=== PATIENT | female | born 1950 | race Caucasian/White ===

== ENCOUNTER → 2023-08-23 07:52 | Outpatient (REF) | payer MEDICARE, OTHER, SELFPAY ==
[2023-08-23 08:58] LABS: HDL Cholesterol 89 mg/dl; LDL Cholesterol, Calculated 142 mg/dl; Total Cholesterol 247 mg/dl (50-199); Triglyceride 80 mg/dl (10-149); Very Low Density Lipoprotein 16 mg/dl (0-30)
== END ==
LOC: REG 07:52
PROVIDERS: ATTENDING PHYSICIAN Family Medicine
DX: E78.2 Mixed hyperlipidemia (principal)
CPT/HCPCS: 36415; 80061

== ENCOUNTER → 2023-08-31 11:50 | Outpatient (REF) | payer MEDICARE, OTHER, SELFPAY ==
[2023-08-31 20:03] LABS: Urine Albumin Trace (Neg - Trace); Urine Bilirubin Negative (Negative); Urine Character Clear (Clear); Urine Color Yellow; Urine Glucose Negative (Negative); Urine Ketone Trace (Negative); Urine Leukocyte 1+ (Negative); Urine Nitrite Positive (Negative); Urine Occult Blood 2+ (Negative); Urine Specific Gravity 1.025 (<1.030); Urine Urobilinogen Negative (Neg - 1+)
[2023-08-31 20:07] LABS: Urine Calcium Oxalate Crystals Present
[2023-08-31 20:09] LABS: Urine Bacteria Few (Negative); Urine Red Blood Cell 0-2 /HPF (0-2)
[2023-08-31 20:10] LABS: Urine Squamous Cell 0-2 /LPF (Few)
== END ==
LOC: CLAB 11:50
PROVIDERS: ATTENDING PHYSICIAN Obstetrics & Gynecology
DX: N39.0 Urinary tract infection, site not specified (principal)
CPT/HCPCS: 81003; 81015; 87086

== ENCOUNTER 2023-10-30 16:49 | Emergency (ER) | payer MEDICARE, OTHER, SELFPAY ==
[2023-10-30 16:53] VITALS: BP 207/114
--- NOTE | 2023-10-30 17:20 | ED.GENMED ---
History of Present Illness
General
Chief Complaint: Headache
Source: patient
Exam Limitations: none
Time Seen by Provider: 10/30/23 17:08
History of Present Illness
History of Present Illness:
73-year-old female 2 days of left-sided neck pain radiating to the left side of her head towards her yarsanism and around her ear. No trauma. Decreased lateral rotation bilaterally and decreased flexion. Patient does do yoga fairly regularly. No
fever no visual issues no other neurologic issues. Pain seems very spasm-like and comes quickly and the spasm-like waves. Last took Tylenol this morning
Past History
Past History
ED Past Medical History: None
ED Past Surgical History: Orthopedic (Bunionectomy) and Other (Melanoma surgery Mohs surgery.)
Review of Systems
Review of Systems
All Other Systems: Not applicable
Constitutional: Denies fever or chills
Respiratory: Reports no symptoms
Cardiac: Reports no symptoms
Neurological: Denies dizzy, weakness or numbness
Phy Exam
Physical Exam
Physical Exam:
GENERAL: Alert and oriented. Patient initially standing in the room walking without difficulty. As we talked she appeared to have these frequent spasms of pain that were causing pain around her left ear and yarsanism area. Clearly had self splinting
with decreased lateral rotation bilaterally and decreased flexion of the neck.
EYE: Orbits normal. Extraocular muscles intact
NECK: Decreased range of motion with decreased lateral and flexion. Left paracervical tenderness. No carotid bruit.
ENT: Pharynx without erythema
CARDIAC: Regular rate and rhythm without any obvious murmurs.
LUNGS: Clear breath sounds,normal
ABDOMEN: Soft, without focal tenderness or distention
NEUROLOGICAL: Alert and oriented , grossly non-focal. Speech normal gait normal. Cranial nerves II through XII intact. Nonfocal.
SKIN: Warm and dry, no rash or lesion, no discoloration, skin intact.
MUSCULOSKELETAL: No edema,no deformity.Good color
PSYCH: Normal and appropriate interaction.
Course
Orders/Labs/Results
Orders:
Orders
10/30/23 17:01
EKG [Electrocardiogram (*1)] Urgent
Reason for Study: Chest Pain
EKG- Treatment ONCE
10/30/23 17:18
CT Head & Neck Angio W/wo IV Urgent
Comment:
Reason For Exam: Left-sided neck pain radiating to the left yarsanism.
IV Insert/Care/Rem.- Treatment PRN
0.9% Sodium Chloride 500 ml [Nss] 500 ml IV BOLUS
diazePAM [Valium Injection] 2 mg IV NOW STA
10/30/23 17:20
Acetaminophen 1000MG/100Ml [Ofirmev] 1,000 mg in 100 ml IV ONCE
Acetaminophen IV Indication:: ED Narcotic Naive Pt-ONCE
10/30/23 17:47
Basic Metabolic Panel Urgent
Complete Blood Count/With Diff Urgent
Erythrocyte Sed Rate Urgent
10/30/23 18:06
Ketorolac [Toradol] 15 mg IV NOW STA
Abnormal Lab Results
10/30/23
17:47
MCH 31.7 H pg
(27.0-31.0)
ESR 23 H mm/hour
(0-20)
10/30/23 17:47
10/30/23 17:47
Vital Signs
Initial and Last Documented VS:
Initial Vital Signs
Temp Pulse Resp BP Pulse Ox
98.1 F 73 16 207/114 99
10/30/23 16:53 10/30/23 16:53 10/30/23 16:53 10/30/23 16:53 10/30/23 16:53
Last Documented Vital Signs
Temp Pulse Resp BP Pulse Ox
98.1 F 58 13 159/86 97
10/30/23 16:53 10/30/23 19:45 10/30/23 19:45 10/30/23 19:00 10/30/23 19:45
MDM/Problems Addressed
Differential Diagnosis Includes:
Clinically this is much more suspicious of a neuralgia/radiculopathy issue. However with nontraumatic sudden pain in the neck radiating to the temporal area dissection or bleed has to be considered. Workup in progress.
*Radiology
Radiology exam reviewed: radiology read reviewed (No acute findings on CT. Mild nonacute sinusitis. The space narrowing.)
*Pulse Oximetry
Patient hypoxic: no
*EKG
Interpreted by ED Provider?: Yes
Interpretation: abnormal
Comparison EKG: no comparison EKG present
Heart Rate: 67
Rate: normal
Rhythm: sinus
[place]well: left axis deviation
Interval: normal interval
QRS Pattern: right bundle branch block (inc)
*Critical Care Note
Total Time (30-74mins, 75-104mins- exclusive of procedures): Not Applicable
Update Note
Update Note:
Patient doing much better with low-dose Valium and Toradol. No serious etiology found. Stable for discharge.
ED Attending Note
-
Portions of this chart may have been created with voice recognition software.� Occasional wrong word or��sound alike� substitutions may have occurred due to the inherent limitations of voice recognition software.
Discharge Plan
Departure
Patient Disposition: Home (Routine Discharge)
Date of Disposition: 10/30/23
Time of Disposition: 19:28
Patient with high blood pressure during this ER visit?: Yes
Discharge Problem:
Headache/left facial pain, Radiculopathy/neuralgia
Instructions: Headache, Adult (DC), BLOOD PRESSURE
Prescriptions:
New
diazepam [Valium] 2 mg tablet
2 mg PO TID PRN (Reason: muscle spasm) Qty: 14 0RF
Referrals:
Kam Burgess MD [Family Provider] - Follow up in 2-3 days
Activity Restrictions/Additional Instructions:
Advil as directed
You can also add Tylenol
Valium as a muscle relaxer
Close follow-up with your primary physician
Return with any concerning symptoms including worsening headache worsening neck pain neurologic symptoms fever visual issues or any other concerning symptoms
Interventions
Interventions:
*Risk Screen - Suicide Last Done: 10/30/23 17:08
*General Assessment Last Done: 10/30/23 16:53
*Neglect/Abuse Screening Last Done: 10/30/23 17:08
*ED COVID-19 Vaccine History Last Done: 10/30/23 16:53
ED- Neurological Assessment Last Done: 10/30/23 17:50
Discharge Date and Time
Print Language: MONTSERRATIAN
[2023-10-30 17:37] VITALS: BP 182/95
[2023-10-30] MEDS: OFIRMEV 100 IV (17:42)
[2023-10-30] MEDS: VALIUM INJECTION 2 MG IV (17:42)
[2023-10-30] MEDS: NSS 500 IV (17:42)
[2023-10-30 18:00] VITALS: BP 163/89
[2023-10-30 18:03] LABS: % Basophils 0.4 % (0-2); % Immature Granulocytes 0.2 % (0-0.5); % Lymphocytes 22.9 % (20.5-51.1); % Monocytes 6.4 % (1.7-9.3); % Neutrophils 69.1 % (42.2-75.2); Absolute Eosinophils 0.1 10^3/uL (0-0.7); Absolute Lymphocytes 2.1 10^3/uL (1.2-3.4); Absolute Monocytes 0.6 10^3/uL (0.1-0.6); Absolute Neutrophils 6.2 10^3/uL (1.4-6.5); Hematocrit 39.5 % (37.0-47.0); Hemoglobin 13.5 g/dL (12.0-16.0); Mean Corp Hgb Conc. 34.2 g/dL (33.0-37.0); Mean Corpuscular Hgb 31.7 pg (27.0-31.0); Mean Corpuscular Volume 92.7 fL (81.0-99.0); Mean Platelet Volume 10.3 fL (7.4-10.4); Nucleated Red Blood Cells % 0 %; Platelet Count 197 10^3/uL (130-400); Red Blood Cell Count 4.26 10^6/uL (4.20-5.40); Red Cell Dist. Width 14.1 % (11.5-14.5)
[2023-10-30 18:18] LABS: Blood Urea Nitrogen 14 mg/dl (7-17); Calcium 9.9 mg/dl (8.4-10.2); Carbon Dioxide 28 mmol/L (22-30); Chloride 103 mmol/L (98-107); Glucose 86 mg/dl (70-99); Potassium 4.1 mmol/L (3.5-5.1); Sodium 137 mmol/L (135-145); eGFR > 60.00
[2023-10-30] MEDS: TORADOL 15 MG IV (18:18)
[2023-10-30 18:32] LABS: Erythrocyte Sed Rate 23 mm/hour (0-20)
[2023-10-30 19:00] VITALS: BP 159/86
== END 2023-10-30 20:00 | disposition home or self-care (01) ==
LOC: EMR 16:49
PROVIDERS: EMERGENCY PHYSICIAN Emergency Medicine; FAMILY PHYSICIAN Family Medicine
DX: M54.10 Radiculopathy, site unspecified (principal); Z85.820 Personal history of malignant melanoma of skin
CPT/HCPCS: 99284; 96374; 96375; 96361; 70496; 70498; 80048; 85025; 85652; 93005; Q9967

== ENCOUNTER → 2023-11-09 14:16 | Outpatient (REF) | payer MEDICARE, OTHER, SELFPAY ==
[2023-11-09 15:22] LABS: % Basophils 0.3 % (0-2); % Eosinophils 0.2 % (0-6); % Immature Granulocytes 0.5 % (0-0.5); % Lymphocytes 12.8 % (20.5-51.1); % Monocytes 1.3 % (1.7-9.3); % Neutrophils 84.9 % (42.2-75.2); Absolute Immature Granulocytes 0.1 10^3/uL (0-0.05); Absolute Lymphocytes 1.2 10^3/uL (1.2-3.4); Absolute Monocytes 0.1 10^3/uL (0.1-0.6); Absolute Neutrophils 7.7 10^3/uL (1.4-6.5); Hemoglobin 13.2 g/dL (12.0-16.0); Mean Corp Hgb Conc. 33.8 g/dL (33.0-37.0); Mean Corpuscular Hgb 31.6 pg (27.0-31.0); Mean Corpuscular Volume 93.3 fL (81.0-99.0); Mean Platelet Volume 9.8 fL (7.4-10.4); Nucleated Red Blood Cells % 0 %; Platelet Count 311 10^3/uL (130-400); Red Blood Cell Count 4.18 10^6/uL (4.20-5.40); Red Cell Dist. Width 13.5 % (11.5-14.5); White Blood Cell Count 9.1 10^3/uL (4.8-10.8)
[2023-11-09 15:35] LABS: Erythrocyte Sed Rate 20 mm/hour (0-20)
[2023-11-09 15:38] LABS: ALT (SGPT) 20 U/L (0-35); AST (SGOT) 28 U/L (14-36); Albumin 4.5 g/dl (3.5-5.0); Alkaline Phosphatase 93 U/L (38-126); Blood Urea Nitrogen 24 mg/dl (7-17); C-Reactive Protein < 5.00 mg/L (0.0-10.00); Calcium 9.8 mg/dl (8.4-10.2); Carbon Dioxide 25 mmol/L (22-30); Chloride 101 mmol/L (98-107); Glucose 126 mg/dl (70-99); Potassium 4.1 mmol/L (3.5-5.1); Sodium 135 mmol/L (135-145); Total Bilirubin 0.4 mg/dl (0.2-1.3); eGFR > 60.00
[2023-11-10 12:55] LABS: Rheumatoid Agglutinin Less Than 10 IU (<10 IU)
[2023-11-12 02:49] LABS: CCP Antibody IgG/IgA 3 Units (0-19)
== END ==
LOC: REG 14:16
PROVIDERS: ATTENDING PHYSICIAN Physician Assistant; FAMILY PHYSICIAN Family Medicine; REFERRING PHYSICIAN Orthopaedic Surgery Hand Surgery
DX: C43.30 Malignant melanoma of unspecified part of face (principal); M06.9 Rheumatoid arthritis, unspecified; M11.20 Other chondrocalcinosis, unspecified site; Z79.899 Other long term (current) drug therapy
CPT/HCPCS: 36415; 80053; 85025; 85652; 86140; 86200; 86430

== ENCOUNTER → 2024-03-01 10:50 | Outpatient (REF) | payer MEDICARE, OTHER, SELFPAY | LOC: WDC 10:50 | PROVIDERS: ATTENDING PHYSICIAN Obstetrics & Gynecology; FAMILY PHYSICIAN Family Medicine | DX: M81.0 Age-related osteoporosis without current pathological fracture (principal); Z12.31 Encounter for screening mammogram for malignant neoplasm of breast | CPT/HCPCS: 77063; 77067; 77080 ==

== ENCOUNTER → 2024-07-10 10:58 | Outpatient (REF) | payer MEDICARE, OTHER, SELFPAY ==
[2024-07-10 12:11] LABS: % Basophils 0.5 % (0-2); % Eosinophils 1.6 % (0-6); % Immature Granulocytes 0.2 % (0-0.5); % Lymphocytes 25.1 % (20.5-51.1); % Monocytes 6.1 % (1.7-9.3); % Neutrophils 66.5 % (42.2-75.2); Absolute Eosinophils 0.1 10^3/uL (0-0.7); Absolute Lymphocytes 2.1 10^3/uL (1.2-3.4); Absolute Monocytes 0.5 10^3/uL (0.1-0.6); Absolute Neutrophils 5.6 10^3/uL (1.4-6.5); Hematocrit 39.9 % (37.0-47.0); Hemoglobin 13.5 g/dL (12.0-16.0); Mean Corp Hgb Conc. 33.8 g/dL (33.0-37.0); Mean Corpuscular Volume 94.5 fL (81.0-99.0); Mean Platelet Volume 9.9 fL (7.4-10.4); Nucleated Red Blood Cells % 0 %; Platelet Count 207 10^3/uL (130-400); Red Blood Cell Count 4.22 10^6/uL (4.20-5.40); Red Cell Dist. Width 13.4 % (11.5-14.5); White Blood Cell Count 8.4 10^3/uL (4.8-10.8)
[2024-07-10 14:01] LABS: ALT (SGPT) 20 U/L (0-35); AST (SGOT) 27 U/L (14-36); Albumin 4.5 g/dl (3.5-5.0); Alkaline Phosphatase 71 U/L (38-126); Blood Urea Nitrogen 18 mg/dl (7-17); Calcium 9.5 mg/dl (8.4-10.2); Carbon Dioxide 27 mmol/L (22-30); Chloride 102 mmol/L (98-107); Glucose 92 mg/dl (70-99); Potassium 4.8 mmol/L (3.5-5.1); Sodium 138 mmol/L (135-145); Total Bilirubin 0.8 mg/dl (0.2-1.3); Total Protein 6.9 g/dl (6.3-8.2); eGFR > 60.00
== END ==
LOC: REG 10:58
PROVIDERS: ATTENDING PHYSICIAN Internal Medicine Rheumatology; FAMILY PHYSICIAN Family Medicine
DX: C43.30 Malignant melanoma of unspecified part of face (principal); M06.9 Rheumatoid arthritis, unspecified; M11.20 Other chondrocalcinosis, unspecified site; M81.0 Age-related osteoporosis without current pathological fracture; Z79.899 Other long term (current) drug therapy
CPT/HCPCS: 36415; 80053; 85025

== ENCOUNTER → 2025-01-02 09:18 | Outpatient (REF) | payer MEDICARE, OTHER, SELFPAY ==
[2025-01-02 10:32] LABS: Hematocrit 38.2 % (37.0-47.0); Hemoglobin 12.9 g/dL (12.0-16.0); Mean Corp Hgb Conc. 33.8 g/dL (33.0-37.0); Mean Corpuscular Volume 93.9 fL (81.0-99.0); Nucleated Red Blood Cells % 0 %; Platelet Count 217 10^3/uL (130-400); Red Cell Dist. Width 13.6 % (11.5-14.5)
[2025-01-02 11:08] LABS: ALT (SGPT) 19 U/L (0-35); AST (SGOT) 28 U/L (14-36); Albumin 4.4 g/dl (3.5-5.0); Alkaline Phosphatase 63 U/L (38-126); Blood Urea Nitrogen 23 mg/dl (7-17); C-Reactive Protein 5.60 mg/L (0.0-10.00); Calcium 9.3 mg/dl (8.4-10.2); Carbon Dioxide 29 mmol/L (22-30); Chloride 104 mmol/L (98-107); Glucose 83 mg/dl (70-99); HDL Cholesterol 79 mg/dl; LDL Cholesterol, Calculated 156 mg/dl; Potassium 4.1 mmol/L (3.5-5.1); Sodium 137 mmol/L (135-145); Total Protein 7.0 g/dl (6.3-8.2); Very Low Density Lipoprotein 12 mg/dl (0-30); eGFR > 60.00
[2025-01-03 13:53] LABS: Rheumatoid Agglutinin Less Than 10 IU (<10 IU)
[2025-01-04 15:48] LABS: CCP Antibody IgG/IgA 2 Units (0-19)
== END ==
LOC: REG 09:18
PROVIDERS: ATTENDING PHYSICIAN Internal Medicine Rheumatology; FAMILY PHYSICIAN Family Medicine
DX: E78.2 Mixed hyperlipidemia (principal); C43.30 Malignant melanoma of unspecified part of face; M06.9 Rheumatoid arthritis, unspecified; M11.20 Other chondrocalcinosis, unspecified site; Z79.899 Other long term (current) drug therapy
CPT/HCPCS: 36415; 80053; 80061; 85025; 85652; 86140; 86200; 86430